=== PATIENT | male | born 1965 | race African-American/Black ===

== ENCOUNTER 2018-04-06 12:41 | Emergency (ER) | payer OTHER ==
[~2018-04-06] VITALS: Ht 188 cm; Wt 105.4 kg
[~2018-04-06 12:41] MED LIST: ALBUTEROL17 GM IH; FLONASE16 GM NS; FLUTICASONE PRO16 GM BOTH NARES; MOBIC7.5 MG PO; NORVASC5 MG PO; PRILOSEC20 MG PO; SINGULAIR10 MG PO; SUDAFED240 MG PO; TRAMADOL HCL200 MG PO; [UNRECOGNIZED DRUG - REMARK]
[2018-04-06 14:30] VITALS: BP 141/92
== END 2018-04-06 16:20 | disposition left against medical advice (07) ==
LOC: EME 12:41
DX: S09.8XXA Other specified injuries of head, initial encounter (principal); S16.1XXA Strain of muscle, fascia and tendon at neck level, initial encounter; S00.81XA Abrasion of other part of head, initial encounter; M25.519 Pain in unspecified shoulder; W22.8XXA Striking against or struck by other objects, initial encounter; I10 Essential (primary) hypertension; Z95.1 Presence of aortocoronary bypass graft; F17.200 Nicotine dependence, unspecified, uncomplicated
CPT/HCPCS: 70450; 72040; 99281; 99283